=== PATIENT | female | born 1955 | race Caucasian/White ===

== ENCOUNTER 2021-01-12 18:02 | Outpatient (CLI) | payer MEDICARE, SELFPAY ==
--- NOTE | ~2021-01-12 | MM_ITS ---
EXAMINATION: MM screening oralia BI w shahid HISTORY: Screening mammogram TECHNIQUE: Craniocaudal and mediolateral oblique 3-D tomosynthesis images were obtained and synthetic 2-D images were generated. CAD analysis was submitted and interpreted. COMPARISON: 08/14/2019, 12/25/2017, 01/13/2015 bilateral digital screening mammogram examinations BREAST PARENCHYMAL COMPOSITION: There are scattered areas of fibroglandular density. FINDINGS: There is no evidence of suspicious mass, calcification, or architectural distortion to sugg est malignancy in either breast. There has been no suspicious interval change. IMPRESSION: 1. No mammographic evidence of malignancy. 2. Recommend routine screening mammography in one year. BI-RADS Category 1: Negative Reviewed, dictated and finalized at location A. ER
== END 2021-01-12 18:03 | disposition home or self-care (01) ==
LOC: ANHIMG 18:08
PROVIDERS: Visit Provider Nurse Practitioner Obstetrics & Gynecology
DX: Z12.31 Encounter for screening mammogram for malignant neoplasm of breast (principal)
CPT/HCPCS: 77063; 77067

== ENCOUNTER 2023-01-14 00:18 | Day surgery (SDC) | payer MEDICARE, SELFPAY ==
[2023-01-01 10:53] VITALS: BMI 24.5
--- NOTE | 2023-01-11 13:32 | PM.HPGS ---
History of Present Illness History of Present Illness Consent: Risks, benefits, and alternatives have been discussed and questions answered. Patient agrees to proceed with procedure. Chief complaint: hx colon polyps Narrative: Dot Kaiser is a 67 year old female referred for colon cancer screening. She has a history of having had polyps removed. Review of Systems Review of Systems: All systems reviewed & are unremarkable except as noted in HPI and below PMFSH Family History Family History Mother Hypertension Cerebrovascular accident Acute myocardial infarction Other Family history of arthritis Family history of osteoarthritis Family history of osteoporosis Social History Social History Smoking status: Never smoker Alcohol intake: current Alcohol use details: wine with dinner Substance use: never Substance use type: does not use Living arrangements: alone Spiritual care concerns: No Meds Home Medications and Allergies Home Medications Medication Instructions Recorded Confirmed Type Vitamin D3 5,000 units PO EVERY OTHER DAY 01/01/23 01/14/23 History celecoxib 200 mg capsule 200 mg PO DAILY 01/01/23 01/14/23 History dextroamphetamine-amphetamine 20 20 mg PO DAILY 01/01/23 01/14/23 History mg tablet dextroamphetamine-amphetamine ER 30 mg PO DAILY 01/01/23 01/14/23 History 30 mg 24hr capsule,extend release hydrochlorothiazide 25 mg tablet 20 mg PO DAILY 01/01/23 01/14/23 History losartan 100 mg tablet 100 mg PO DAILY 01/01/23 01/14/23 History potassium chloride 10 mEq 10 meq PO DAILY 01/01/23 01/14/23 History tablet,extended release Allergies Allergy/AdvReac Type Severity Reaction Status Date / Time No Known Allergies Allergy Verified 01/14/23 07:46 Exam Const: General: alert Orientation/consciousness: patient oriented x3 Resp: Auscultation: clear to auscultation bilaterally Cardio: Rhythm: regular rhythm GI: GI Palp: Yes Soft to palpation and No Tenderness to palpation present (GI) Neuro: General: patient oriented x3 Assessment and Plan Assessment and plan (1) Colon cancer screening: Code(s): Z12.11 - Encounter for screening for malignant neoplasm of colon Status: Acute Assessment and Plan: Colonoscopy with possible biopsy or polypectomy or cautery or injection of substances.
[2023-01-14 07:47] VITALS: BP 125/70; PULSE 72; RESP 18; TEMP 36.1; O2SAT 100; BMI 24.3
[2023-01-14] MEDS: LACTATED RINGERS 1,000 ML 150 ML IV CONT (07:56)
--- NOTE | 2023-01-14 08:05 | WPDANESEPPF ---
Anes - Initial Pre Proc Eval Procedure: Operation Date: 01/14/23 08:00 Proposed Procedures p Colonoscopy - Qasim Petty MD Date/Time: 01/14/23 08:05 Surgeon: Qasim Petty MD Pre Op Diagnosis: hx colon polyps Patient Data Age: 67 Gender: F Height: 1.55 m Weight: 58.3 kg Last Vital Signs Temp 97.0 F L 01/14/23 07:47 Pulse 72 01/14/23 07:47 Resp 18 01/14/23 07:47 BP 125/70 01/14/23 07:47 Pulse Ox 100 01/14/23 07:47 O2 Del Method Room Air 01/14/23 07:47 Allergies Allergy/AdvReac Type Severity Reaction Status Date / Time No Known Allergies Allergy Verified 01/14/23 07:46 Home Medications Medication Instructions Recorded Confirmed Type Vitamin D3 5,000 units PO EVERY OTHER DAY 01/01/23 01/14/23 History celecoxib 200 mg capsule 200 mg PO DAILY 01/01/23 01/14/23 History dextroamphetamine-amphetamine 20 20 mg PO DAILY 01/01/23 01/14/23 History mg tablet dextroamphetamine-amphetamine ER 30 mg PO DAILY 01/01/23 01/14/23 History 30 mg 24hr capsule,extend release hydrochlorothiazide 25 mg tablet 20 mg PO DAILY 01/01/23 01/14/23 History losartan 100 mg tablet 100 mg PO DAILY 01/01/23 01/14/23 History potassium chloride 10 mEq 10 meq PO DAILY 01/01/23 01/14/23 History tablet,extended release Patient hx anesthesia problems: none Family hx anesthesia problems: none Results Review: All pre-operative results and documents have been reviewed as part of the pre-operative evaluation. [facility] Family History Family History Mother Hypertension Cerebrovascular accident Acute myocardial infarction Other Family history of arthritis Family history of osteoarthritis Family history of osteoporosis Social History Social History Smoking status: Never smoker Alcohol intake: current Alcohol use details: wine with dinner Substance use: never Substance use type: does not use Living arrangements: alone Spiritual care concerns: No Anes - Eval Final PreProcedure Day of Procedure 01/14/23 08:05 Patient weight: normal Heart: regular rate and rhythm Lungs: clear to auscultation Airway: Mallampati scale class II Neurological: alert and oriented Last oral intake: >/= 8 hours ASA classification: II Emergent: no Anesthetic plan: proceed Anesthesia type and monitoring: general GIVS and standard monitoring Results Review: All pre-operative results and documents have been reviewed as part of the pre-operative evaluation. Informed Consent: The patient's anesthetic plan and its attendant risks and benefits were discussed with the patient/family/POA. Questions were solicited and answers provided to the satisfaction of the patient/family/POA.
[2023-01-14] MEDS: SIMETHICONE ORAL SUSPENSION 20 MG/0.3 ML 30 ML BOTTLE 0.6 ML IRRIGATION (08:43)
[2023-01-14 08:55] VITALS: BP 136/71; PULSE 65; RESP 17; O2SAT 100
[2023-01-14 09:05] VITALS: BP 136/71; PULSE 65; RESP 17; O2SAT 100
[2023-01-14 09:10] VITALS: BP 135/73; PULSE 63; RESP 25; O2SAT 100
== END 2023-01-14 09:30 | disposition home or self-care (01) ==
PROVIDERS: PCP Physician Assistant; Visit Provider Internal Medicine Gastroenterology
PROC: 0DJD8ZZ Inspection of Lower Intestinal Tract, Via Natural or Artificial Opening Endoscopic (ICD-10-PCS; CPT 45378; principal; 2023-01-14 08:00)
DX: Z12.11 Encounter for screening for malignant neoplasm of colon (principal); K57.30 Diverticulosis of large intestine without perforation or abscess without bleeding; D12.4 Benign neoplasm of descending colon
CPT/HCPCS: 45380; 88305; J2704; J7120

== ENCOUNTER 2023-05-14 14:51 | Outpatient (CLI) | payer MEDICARE, SELFPAY ==
--- NOTE | ~2023-05-14 | MM_ITS ---
EXAMINATION: MM screening oralia BI w shahid HISTORY: Screening mammogram TECHNIQUE: Craniocaudal and mediolateral oblique 3-D tomosynthesis images were obtained and synthetic 2-D images were generated. CAD analysis was submitted and interpreted. COMPARISON: January 12, 2021, August 14, 2019, December 25, 2017 bilateral screening mammogram exa minations BREAST PARENCHYMAL COMPOSITION: There are scattered areas of fibroglandular density. FINDINGS: There is no evidence of suspicious mass, calcification, or architectural distortion to sugg est malignancy in either breast. There has been no suspicious interval change. IMPRESSION: 1. No mammographic evidence of malignancy. 2. Recommend routine screening mammography in one year. BI-RADS Category 1: Negative Reviewed, dictated and finalized at location A.
== END 2023-05-14 14:52 | disposition home or self-care (01) ==
PROVIDERS: PCP Physician Assistant; Visit Provider Physician Assistant
DX: Z12.31 Encounter for screening mammogram for malignant neoplasm of breast (principal)
CPT/HCPCS: 77063; 77067

== ENCOUNTER 2025-01-01 14:13 | Outpatient (CLI) | payer MEDICARE, SELFPAY ==
--- NOTE | ~2025-01-01 | MM_ITS ---
EXAMINATION: MM screening oralia BI w shahid HISTORY: Screening TECHNIQUE: Craniocaudal and mediolateral oblique 3-D tomosynthesis images were obtained and synthetic 2-D images were generated. CAD analysis was submitted and interpreted. COMPARISON: Comparison to multiple prior studies sequentially, with oldest reviewed study dated 01/13. BREAST PARENCHYMAL COMPOSITION: Not dense: There are scattered areas of fibroglandular density. FINDINGS: There is no evidence of suspicious mass, calcification, or architectural distortion to sugg est malignancy in either breast. There has been no suspicious interval change. IMPRESSION: 1. No mammographic evidence of malignancy. 2. Recommend routine screening mammography in one year. BI-RADS Category 1: Negative Reviewed, dictated and finalized at location A. MECHANIC
--- OUTSIDE RECORDS SUMMARY | 2025-01-01 14:19 | XMS_ITS | Clinical Summary ---
Author Organization [facility] Address [address] [place] [address]. [place] [address] [place] [address] Care Team Providers Care Rn Sane Name Role Phone Kajal Franklin Shankar [facility] Primary Care Provider + Allergies Active Allergy Reactions Criticality Noted Date Comments Vitamin A Rash Medium 03/27/2017 Medications vitamin D3, cholecalciferol , 5000 UNITS capsule Take 1 capsule (5,000 Units total) by mouth every other day. Active clobetasol 0.05 % external solution clobetasol 0.05 % scalp solution Active hydroCHLOROthia zide 25 MG tablet Take 1 tablet (25 mg total) by mouth daily. 1 Active losartan 100 MG tablet Take 1 tablet (100 mg total) by mouth daily. 1 Active amphetamine-dex troamphetamine XR (ADDERALL XR) 30 MG 24 hr capsule Take 1 capsule (30 mg total) by mouth every morning. Active clobetasol (TEMOVATE) 0.05 % ointment APPLY TWICE DAILY TO AFFECTED AREAS ON FEET AND SCALP 2 Active pimecrolimus (ELIDEL) 1 % cream APPLY EXTERNALLY TO FACE EVERY MORNING 2 Active celecoxib (CELEBREX) 200 MG capsule Take 1 capsule (200 mg total) by mouth 2 (two) times daily as needed for Pain. 2 Active atorvastatin (LIPITOR) 20 MG tablet Take 1 tablet (20 mg total) by mouth nightly at bedtime. Active ketoconazole (NIZORAL) 2 % shampoo USE TO WASH HAIR DAILY FOR 6 WEEKS 3 Active ofloxacin (OCUFLOX) 0.3 % ophthalmic solution 3 Active valACYclovir (VALTREX) 1 g tablet TAKE ONE TABLET BY MOUTH THREE TIMES DAILY FOR 7 DAYS NEEDED FOR OUTBREAKS 4 Active omeprazole (PRILOSEC) 20 MG capsule Take 1 capsule (20 mg total) by mouth daily as needed (indigestion). Active potassium chloride CR (K-TAB) 20 MEQ tablet Take 1 tablet (20 mEq total) by mouth daily. 4 Active amphetamine-dex troamphetamine (ADDERALL) 20 MG tablet 4 Active Active Problems Problem Noted Date Diagnosed Date History of colon polyps 03/03/2024 History of nephrolithiasis 03/03/2024 Osteopenia 03/03/2024 Osteoarthritis 03/03/2024 Seborrheic dermatitis 03/03/2024 Attention deficit hyperactiv ity disorder (ADHD), unspecified ADHD type 03/03/2024 Vitamin D deficiency 03/03/2024 Hypercholesterolemia 08/04/2021 Systolic murmur 08/04/2021 Non-seasonal allergic rhinitis 06/01/2010 Overview (03/03/2024): Last Assessment & Plan: In addition to her skin complaints, she feels there is some sort of pressure in her eyes like something is trying to come out. Sometimes her eyes will discharge a watery mucus. In the morning when she first wakes up she has to use saline to get her eyes open. She also has a pressure-like sensation in her nose and feels like the mucus in her eyes is draining into her nose. The mucus in her nose is very tenacious. When she grabs it with tweezers, it recoils back into her nose. She saw Dr. Robertson a number of years ago who recommended some nasal steroid sprays. She took these for awhile but it did not help much. She now takes Zyrtec daily. Exam is fairly unremarkable. We will review records when available and make some additional suggestions. Essential hypertension 01/02/2000 Overview (03/03/2024): Last Assessment & Plan: She has had high blood pressure for at least 10 years. It seems to be well controlled on current therapy. She would like some labs checked which we ordered. I do not think her skin complaints are related to hypertension or its treatment. 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/2021 03/03/2024 Immunizations Name Administration Dates Next Due PFIZER COVID-19 BIVALENT (12 +) mRNA, LNP-S, PF, 30 MCG/0.3 ML DOSE 12/05/2022 Pneumococcal (Prevnar 20) 12/05/2022 Family History Medical History Relation Comments Arthritis Father osteoarthritis; psoriatic Cancer Father skin (basal, squ amous) Heart Disease Father 9nth decade; car diomyopathy/a fib Hyperlipidemia Father elevated LDL Hypertension Father mild, 9th decade Stroke Father 10th decade/a fi b Arthritis Mother osteoarthritis Heart Disease Mother early 6th decade ; CAD; tobacco use Hyperlipidemia Mother ?; tobacco use Hypertension Mother cardiovascular Stroke Mother early 6th decade /tobacco use Vision loss Mother cataracts; macul ar degeneration Relation Status Comments Father Mother Social History Tobacco Use Types Packs/Day Years Used Date Smoking Tobacco: Never Smokeless Tobacco: Never Tobacco Cessation:Counseling Given: No Alcohol Use Standard Drinks/Week Comments Yes 23.3 (1 standard drink = 0.6 oz pure alcohol) PHQ-2 Answer Date Recorded Patient Health Questionnaire-2 Score 0 02/26/2024 Comments No Sex and Gender Information Value Date Recorded Sex Assigned at Not on file Legal Sex Female 12:48 PM CDT Gender Identity Not on file Sexual Orientation Not on file Last Filed Vital Signs Vital Sign Reading Time Taken Comments Blood Pressure 135/88 02/26/2024 8:49 AM CDT Pulse 68 02/26/2024 8:49 AM CDT Temperature 36.4 ??C (97.6 ??F) 02/26/2024 8:49 AM CD T Respiratory Rate 16 02/26/2024 8:49 AM CDT Oxygen Saturation 99% 02/26/2024 8:49 AM CDT Inhaled Oxygen Concentration - - Weight 57.7 kg (127 lb 3.2 oz) 02/26/2024 8:49 A M CDT Height 157.5 cm (5' 2 ) 02/26/2024 8:49 AM CDT Body Mass Index 23.27 02/26/2024 8:49 AM CDT Plan of Treatment Health Maintenance Due Date Last Done Comments DTaP, Tdap and Td Vaccines (1 - Tdap) 1973 Zoster Vaccines (1 of 2) 1973 RSV Immunization or 60+ Years (1 - Risk 60-74 years 1-dose series) 2014 Annual Medicare Wellness Visit 2019 Dexa Scan (General) 2019 COVID-19 Vaccine ( season) 2024 12/05/2022, 11/08/2021, 01/06/2021, Additional history exists Influenza Adult (#1) 2024 PHQ-2 (Physician [place]) 12/02/2024 02/26/2024 PHQ-2 (Physician [place]) 02/25/2025 02/26/2024 Mammogram Screening 05/14/2025 05/14/2023 Colorectal Cancer Screening Colonoscopy (10 Years) 01/02/2033 Postponed from 1954 (Future Appointment) Hepatitis C Completed 12/05/2022 Pneumococcal Vaccine: 65+ Years Completed 12/05/2022 Meningococcal B Vaccine Aged Out No l onger eligible based on patient's age to complete this topic Meningococcal Vaccine Aged Out No sean em eligible based on patient's age to complete this topic RSV Immunizations Under 20 Months Aged Out No longer eligible based on patient's age to complete this topic Procedures Procedure Name Priority Date/Time Associated Diagnosis Comments MAMMOGRAM GENERIC (SCAN ORDER) 05/14/2023 HEPATITIS C ANTIBODY Routine 12/05/2022 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 Encounter for hepatitis C screening test for low risk patient from Last 3 Months or Most Recently Relevant to Health Maintenance Results * MAMMOGRAM GENERIC (05/14/2023) Anatomical Region Laterality Modality Other 05/14/2023 [facility] Scanned SCANNING Final Resu lt * HEPATITIS C AB ([facility] ONLY) (12/05/2022 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) HEPATITIS C AB NON-REACTI VE NON-REACTI VE 12/05/2022 8:20 PM PICKING TABLE WORKER [facility] 12/05/2022 12:1 1 PM PICKING TABLE WORKER [facility] Final Result [facility] [address] [place] [address], [place] [phone] from Last 3 Months or Most Recently Relevant to Health Maintenance Insurance [facility]ARE [facility] Care Teams Rn Sane Relationship Specialty Start Date End Date Kajal Franklin, MEDICINAL CHEMIST-BC [address], [address] [place] [address] PCP - General Nurse Practitioner Family 01/16/24
--- OUTSIDE RECORDS SUMMARY | 2025-01-01 14:19 | XMS_ITS | Continuity of Care Document ---
Author Organization [facility] Address [address] [address] Phone Care Team Providers Care Horse Race Timer Name Role Phone Mauricio Shaw Unavailable Unavailable Allergies, Adverse Reactions, Alerts Substance Reaction Status Criticality No Known Allergies Active No Inform ation Medications Medication Instructions Dosage Effective Dates (start - stop) Status Comments losartan 100 mg-hydrochlorothiazide 12.5 mg tablet - Active Adderall 30 mg tablet - Active Adderall 10 mg tablet - Active potassium chloride ER 8 mEq capsule,extended release - Active Vitamin D2 1,250 mcg (50,000 unit) capsule - Active diclofenac potassium 50 mg tablet - Active Soma 250 mg tablet - Active hydrocodone 5 mg-acetaminophen 325 mg tablet - Active Procedures Procedure Date Office/outpatient visit,[facility] 2020 Advance Directives Directive Yes / No Effective Date File Name No Information Encounters Encounter Description Practice Location Reason(s) For Visit Diagnoses Date Provider Providers Copied on Encounter [facility], [address] [place] [address], [id number], tel:[phone] [facility] No Information Colin banegas. [address] [place] [address], [place], [place], [id number] , [place]. tel:[phone] Office/outpat ient visit,[facility], [address] [place] [address], [id number], tel:[phone] [facility] right hip (chief complaint) Pain in right hipUnilateral primary osteoarthritis , left hipIdiopathic aseptic necrosis of left femur Barclaytracy Morejon. [address], [address], [place], [place], [id number] , . tel: [phone] Referring Provider: Jean-Pierre Delacruz, [address], [place], [address] . tel:[phone] Family History Family Member Type Diagnosis Age At Onset Mother Problem (finding) Hypertension Mother Problem (finding) Other Father Problem (finding) Stroke Mother Problem (finding) Osteoarthritis Mother Problem (finding) Stroke Mother Problem (finding) Heart Disease Father Problem (finding) Cancer, unknown Mother Problem (finding) Cancer, unknown Father Problem (finding) Hypertension Father Problem (finding) Osteoarthritis Payers Payer name Insurance type Covered alliance party ID Authoriza tion(s) [place] Part B [id number] A Insurance Agency [id number] Social History Type Description Quantity Date Captured Comments Alcohol Use Details Unknown Caffeine Use Details Unknown Tobacco Use Status No Information Smoking Status No Information Sex Female Chief Complaint And Reason For Visit No Information Reason For Referral Reason For Referral No Information Plan Of Treatment Date Type Action Status Referral Ordered: X-ray Exam Hip Unilat With Pelvis When Perf 2-3 View RT hip ordered History Of Present Illness Encounter Date Complaint History Of Prese nt Illness right hip Julieta is a 66 year old, 5'2 tall, 125 pound, right hand dominant female who presents to the office today for evaluation of her chronic left hip pain. States that pain started last year with increases to yard work. Pain decreased with reduction to yard work. She sustained a fall event in March and a subsequent fall in April with resulting increase in pain. She presented to Dr. Reinier Ortega where she was diagnosed with osteoarthritis of the left hip. She received a cortisone injection into the left hip, and a prescription for Vicodin. Unable to indicate efficacy of injection. Did not wish to continue care as the physician did not perform anterior hip replacements. Patient presented to Dr. Lawrence one week after injection and was informed that surgical intervention could not be performed until patient was more than 3 months past cortisone injection. States she states another fall event in late May, and was told to use a cane with ambulation and a change to her NSAIDs was completed. States she was very frustrated with no increase to pain medications, and physician refusal to perform surgery until patient was three months past injection. 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 She presented to the office of Dr. Tavares last week where she was diagnosed with AVN and scheduled for surgical intervention with anterior hip arthroplasty on 08/18/2021. She is to present to the hospital for presurgical testing this week. She would like to discuss surgical intervention, requesting anterior total hip arthroplasty before the date of 08/18/2021, opinion of use of robotics with surgery, and medications management. She is currently experiencing a catching sensation with range of motion, crepitation, difficulty falling asleep, giving way, grinding, numbness, popping, spasms. Pain is rated at a 10 out of 10 with an aching, sharp, stabbing, throbbing constant nature. Pain is worsened with bending, range in motion, sitting, standing, walking. Pain is managed with the use of acetaminophen, Soma, hydrocodone, and rest. 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 She is ambulating with the use of a cane at today's visit. Functional Status Date Functional Assessmen t No Information Instructions Date Instruction Additional Infor mation No Information Assessments Type Assessment Date No Information Patient Care Teams Name Effective Dates (start - stop) Status Members No Information
--- OUTSIDE RECORDS SUMMARY | 2025-01-01 14:19 | XMS_ITS | Continuity of Care Document ---
Author Organization [facility] Address [address] [facility] [address] [place] [address] Phone Care Team Providers Care Floor Sanding Machine Operator Name Role Phone Christiano Kasper MD, FACS Unavailable Unavailab le Advance Directives Directive Yes / No Effective Date File Name No Information Encounters Encounter Description Practice Location Reason(s) For Visit Diagnoses Date Provider Providers Copied on Encounter [facility], [address], [place], [place], [id number], [place] tel:[phone] [facility] No Information Mar-0 9-200 0 Majo Alvarado. [address], [address], [place], [place], [id number], [place]. tel:[phone] Family History Family Member Type Diagnosis Age At Onset No Information Payers Payer name Insurance type Covered libertarian ID Authoriza tion(s) No Information Social History Type Description Quantity Date Captured Comments Sex Female Smoking Status No Information Chief Complaint And Reason For Visit No Information Reason For Referral Reason For Referral No Information History Of Present Illness Encounter Date Complaint History Of Prese nt Illness No Information Functional Status Date Functional Assessmen t No Information Instructions Date Instruction Additional Infor mation No Information Assessments Type Assessment Date No Information Patient Care Teams Name Effective Dates (start - stop) Status Members No Information
--- OUTSIDE RECORDS SUMMARY | 2025-01-01 14:19 | XMS_ITS | Referral Summary ---
Author Organization [facility] Physician Office Building [address] Address [address] [place] [address] Care Team Providers Care Power Generation Technician Name Role Phone No, Physician Primary Care Provider [phone] Allergies Active Allergy Reactions Criticality Noted Date Comments Vitamin A Rash Medium 03/27/2017 Medications cholecalciferol (VITAMIN D-3) 5,000 unit capsule Take by mouth daily Active dextroamphetami ne-amphetamine XR (ADDERALL XR) 30 mg 24 hr capsule Take 1 capsule by mouth every morning 0 9 Active dextroamphetami ne-amphetamine (ADDERALL) 10 mg tablet Take 1 tablet by mouth daily At noon. 0 9 Active losartan (COZAAR) 100 mg tablet TK 1 T PO QD 2 9 Active multivitamin tablet Take 1 tablet by mouth daily Active cetirizine (ZyrTEC) 10 mg tablet Take 10 mg by mouth daily Active hydroCHLOROthia zide (HYDRODIURIL) 25 mg tablet Take 25 mg by mouth daily Active potassium chloride ER (potassium chloride ER) 10 mEq CR tablet Take 10 mEq by mouth daily Active spinosad 0.9 % suspension Apply 1 application topically once Has applied it once a week for month of January 2021. 1 Active Active Problems Problem Noted Date Diagnosed Date Itchy skin 06/01/2016 Overview (06/21/2020): Scalp, face, eyes, wrists, ankles. 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 She brought in multiple photos which are challenging to interpret. She uses a 30 X magnifying camera with ring LED illumination that she applies to symptomatic areas of her skin and scalp to take pictures. I reviewed multiple photographs which appear to show hair roots and squamous cell debris but nothing else that I can identify as a definite infection or inflammatory dermatitis. She says when she first gets up in the morning her skin is like a ? snow storm.? She then uses a nit comb to clean things up. Her eyes and nose which are constantly irritated and dischafging material that she feels might be due to a local infestation or infection of some kind. Photos of the eye and nose material show amorphous, yellowish material that is difficult to interpret for lack of context. It might be dried mucus. Since her last visit with me 6 months ago, she obtained on her own and applied a couple of insecticides including malathion followed by spinosad, the later seemed to help a little. She denies systemic symptoms of any kind. She had her labs done and says they were all normal except for cholesterol abnormalities. They did not come through the interface but we are trying to track them down. Inspection of the scalp, face and forearms was negative for any definite pathology or evidence of ectoparasite infestation. At this point, I do not think I have anything else to offer her. I did recommend that she follow-up with a special effects specialist of her choice. A skin snip might be helpful in diagnosing or excluding scabies. I will review labs that when they become available, and if follow-up testing is needed, I will let her know. I also recommended that she find a PCP who can monitor her blood pressure and cholesterol, and that she consider lowering the dose of blood pressure medicine since her current blood pressure is in a low normal range. She can follow-up here as needed. Assessment & Plan (07/02/2020 3:12 PM CDT): For the past four years or so, she has had irritated or itchy skin, mostly in the scalp and face, but also on both wrists and both ankles. She feels like something is on her skin, possibly crawling on it. She also has pressure in her eyes like something is trying to come out, and thick mucus in her nose which she thinks might be draining from her eyes. She used a special camera that she attaches to her computer to take pictures and says that it shows small parasites of some kind. She meant to bring the photos with her, but forgot. She has been to numerous dermatologists who have not found any underlying condition. She has tried numerous remedies which she has mostly prescribed to herself including steroid creams, moisturizing creams, metronidazole gel, cyclosporin topical, vitamin-D analog topical, anti fungals, and even remedies for lice and scabies. A special effects specialist in [place] gave her a one month course of Diflucan. None of these have helped or reduced her symptoms. Exam shows no definite abnormality on the scalp, face, arms and wrists, hands, lower legs. She does have a chronic appearing dry, inflamed hyperkeratotic and confluent dermatitis of the soles of both feet with areas of keratolysis along the margin of the rash where it abuts normal appearing skin. She apparently has had a biopsy of the right nondenominational area, but those results are not available. 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 She does have a psychiatrist for adult ADD, but is not on any psychotropic medications. She does take dextroamphetamine. She will bring in records for review. We will check some baseline labs which she has not had for awhile. We will see her back in two weeks. Rash 06/01/2016 Overview (06/21/2020): Plantar surfaces of both feet. Assessment & Plan (07/02/2020 3:13 PM CDT): As noted elsewhere, I do not see any definite rash except on the plantar surfaces of both feet. This looks like a dry eczematous or less likely psoriatic type rash. She has tried several remedies on this rash including anti fungals, topical steroids, and emollients. She admits to not using some of these remedies consistently. We will review records when they become available. Consider a trial of other medications if indicated. Non-seasonal allergic rhinitis 06/01/2010 Assessment & Plan (07/02/2020 3:13 PM CDT): In addition to her skin complaints, she [...] make some additional suggestions. Essential hypertension 01/02/2000 Assessment & Plan (06/21/2020 1:18 PM CDT): She has had high blood pressure for at least 10 years. It seems to be well controlled on current therapy. She would like some labs checked which we ordered. I do not think her skin complaints are related to hypertension or its treatment. Immunizations Name Administration Dates Next Due Influenza, Unspecified 07/31/2021(Deferr ed: Patient Refused),12/02/2019(Deferred: Patient Refused) Pfizer SARS-CoV-2 Monovalent Vaccination (12+ Yrs) PURPLE 01/06/2021,01/06/2021,12/17/2020,2020 Social History Tobacco Use Types Packs/Day Years Used Date Smoking Tobacco: Never Smokeless Tobacco: Never Tobacco Cessation:Counseling Given: Yes Alcohol Use Standard Drinks/Week Comments Yes 0 (1 standard drink = 0.6 oz pur e alcohol) PHQ-2 Answer Date Recorded PHQ-2 Total Score (If total score is 3 or more points, staff should administer the PHQ-9) 6 06/21/2020 Comments No Sex and Gender Information Value Date Recorded Sex Assigned at Not on file Legal Sex 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 Gender Identity Not on file Sexual Orientation Not on file Occupation Industry Job Start Date Job End Date [employer] Not on file Not on file Not o n file Last Filed Vital Signs Vital Sign Reading Time Taken Comments Blood Pressure 90/52 02/01/2021 2:04 PM VARNISH MELTER HELPER Pulse 83 02/01/2021 2:04 PM VARNISH MELTER HELPER Temperature 36.2 ??C (97.1 ??F) 02/01/2021 2:04 PM CS T Respiratory Rate 12 02/01/2021 2:04 PM VARNISH MELTER HELPER Oxygen Saturation 97% 02/01/2021 2:04 PM VARNISH MELTER HELPER Inhaled Oxygen Concentration - - Weight 58.1 kg (128 lb) 02/01/2021 2:04 PM VARNISH MELTER HELPER Height 160 cm (5' 3 ) 06/21/2020 12:04 PM CDT Body Mass Index 22.67 06/21/2020 12:04 PM CDT Plan of Treatment Not on file Procedures Procedure Name Priority Date/Time Associated Diagnosis Comments MAMMOGRAPHY Routine 12/02/2016 COLONOSCOPY Routine 12/02/2016 DEXA SCAN Routine 12/02/2009 from Last 3 Months or Most Recently Relevant to Health Maintenance Results * COLONOSCOPY (12/02/2016) Colonoscopy Abnormal Comment:Polyps [facility] Provider HEALTH MAINTENANCE Final Result * MAMMOGRAPHY (12/02/2016) Mammogram Normal [facility] Provider HEALTH MAINTENANCE Final Result * DEXA SCAN (12/02/2009) DEXA Scan Abnormal Comment:Osteopenia Historical Provider HEALTH MAINTENANCE Final Result from Last 3 Months or Most Recently Relevant to Health Maintenance Insurance COMMERCIAL GENERIC MEDICARE MEDICARE [facility] Care Teams Power Generation Technician Relationship Specialty Start Date End Date No, Physician PCP - General 08/18/19
--- OUTSIDE RECORDS SUMMARY | 2025-01-01 14:19 | XMS_ITS | CONTINUITY OF CARE DOCUMENT ---
Author Name edmar hyatt Address Unknown Organization [facility] Address [address] [facility] [address] [place] [address] Phone [phone] Care Team Providers Care Order Builder Loader Name Role Phone Yris SINGLETON, Galo Unavailable AISHWARYA MILLER MD Unavailable [phone] PROBLEMS Condition Status Date Provider Notes Screening active Charla Rios Hypercholesterolemia active Charla Rios Hypertension active Charla Rios Preoperative cardiovascular evaluation active Charla Rios Systolic murmur, mild active Charla Rios ENCOUNTERS Date Type Provider Location Encounter Diag nosis 11/17 - 11/17 In-person encounter Office Visit Galo Arndt MD [facility] 08/04 - 08/08 In-person encounter Office Visit Galo Arndt MD [facility] ScreeningHypercholesterolemiaHypertensio nPreoperati ve cardiovascular evaluationSystolic murmur, mild VITAL SIGNS Date Observation Value Provider Body Mass Index (Ratio) 23.96 kg/m2 Cesar Rios blood pressure, cuff size regular Ke rri Osmany blood pressure, diastolic 70 mm[Hg] Ke rri Osmany blood pressure, systolic 112 mm[Hg] Citlaly Ceron oxygen saturation, oximetry 98 % Mecca Ceron respiratory rate E&M 14 /min Mecca tomasbassam pulse rate 71 /min Mecca Shah er weight E&M 131 [lb_av] Mecca Shah er height E&M 62 [in_i] Mecca Shah lder blood pressure, diastolic 82 mm[Hg] Li nkLogic blood pressure, systolic 128 mm[Hg] Isa kLogic blood pressure, cuff size regular Ke [facility]at [facility] blood pressure, diastolic 82 mm[Hg] Ke rrbertha Rod blood pressure, systolic 128 mm[Hg] Citlaly Ceron oxygen saturation, oximetry 97 % Mecca Mirzamarquita respiratory rate E&M 16 /min Mecca Baker dahliainocentemarquita pulse rate 74 /min Mecca Shah er height E&M 62 [in_i] Mecca Zhangmaribel [facility] HISTORY OF MEDICATION USE Medication Status Instructions Dates Provider Indications Com ziggy atorvastatin 20 mg tablet active TAKE 1 TABLET BY MOUTH EVERY DAY 08/11 Marvin Kelly Lipitor 20 mg tablet completed Take 1 tabl et by mouth once a day 08/04 - 08/11 Charla Rios diclofenac sodium 75 mg tablet,delayed release (DR/EC) active TAKE 1 TABLET BY MOUTH TWICE DAILY WITH FOOD. TAKE INSTEAD OF THE NAPROXEN OR CELEBREX. DO NOT TAKE ANY OTHER NSAIDS. Mecca Ceron losartan 100 mg tablet active TAKE 1 TABLET BY MOUTH EVERY DAY Mecca Ceron hydrocodone-acetamino phen 5-325 mg tablet active TAKE 1 TABLET BY MOUTH EVERY 4 HOURS NEEDED FOR PAIN Mecca Ceron dextroamphetamine-amp hetamine 10 mg tablet active TAKE 1/2 TO 1 TABLET BY MOUTH EVERY DAY AT NOON DIRECTED Mecca Ceron vitamin D3-folic acid unspecified unspecified active by mouth once a day Mecca Rodbassam dextroamphetamine-amp hetamine 30 mg capsule,extended release 24hr active by mouth once a day Mecca Ceron hydrochlorothiazide 25 mg tablet active by mouth once a day Mecca Ceron omeprazole 20 mg capsule,delayed release(DR/EC) active by mouth twice a day Mecca Zhangrossbassam potassium chloride 10 mEq tablet extended release active by mouth once a day Mecca Mirzaolayinkabassam Zyrtec 10 mg tablet active by mouth onc e a day Mecca Ceron SOCIAL HISTORY Date Observation Value Provider social history E&M S moking History: P nkechi has never smoked. Charla Rios social history reviewed E&M revi ewed - no changes required Charla Rios smoking status Never smoker Mecca adler social history reviewed E&M revi ewed - no changes required Charla Rios smoking status Never smoker Mecca Pearsondillon adler INSURANCE PROVIDERS Payer name Policy type / Coverage type [place] [employer] ID [employer] Commercial insurance compan y [id number] [place] MED[place] Medicare [id number] ADVANCE DIRECTIVES Name Date DISCUSSED - NO DECISION MADE TREATMENT PLAN Date Name Performer [id number],C, n o clinically significant by echo Charla Rios [id number],C, N ot taking her statin but she did pick it up S he understands the benefits E ncouraged her to try dietary/lifestyle modification for now and recheck labs in 2 months. Charla iRos [id number],B, B P today: 112/70 P rior BP: 128/82 (08/04/2021) Her updated medication list for this problem includes: Losartan 100 Mg Tablet (Losartan) ..... Take 1 tablet by mouth every day Hydrochlorothiazide 25 Mg Tablet (Hydrochlorothiazide) ..... 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 Normal left ventricular systolic function. Normal left ventricular size. Normal left ventricular wall thickness. There is E to A w ave reversal consistent with impaired LV relaxation. E/E': 7.2. Left ventricular ejection fraction is measured at 65 %. 2 . There is non-specific thickening of the mitral valve leaflets. Mild mitral valve regurgitation. 3 . Normal aortic root size. Mild aortic wall calcification. Stress nuclear 08/09/21: Normal myocardial perfusion imaging with no evidence of ischemia or scar. Charla Gabriel [id number],C, n ot on any medications for this. start lipitor Orders: S tress Regadenoson ([id number]) C omplete Echo ([id number]) Her updated medication list for this problem includes: Lipitor 20 Mg Tablet (Atorvastatin) ..... Take 1 tablet by mouth once a day Charla Gabriel [id number],B, B P today: 128/82 Her updated medication list for this problem includes: Losartan 100 Mg Tablet (Losartan) ..... Take 1 tablet by mouth every day Hydrochlorothiazide 25 Mg Tablet (Hydrochlorothiazide) ..... By mouth once a day Charla Gabriel [id number],N, i f no clinically significant ok for surgery O rders: C omplete Echo (CPT-[id number]) Charla Gabriel [id number],C, l eft hip total replacement Orders: S tress Regadenoson ([id number]) C omplete Echo ([id number]) Charla Gabriel Electrophysiology: n o clinically significant by echo [facility] [place] [facility] Electrophysiology: N ot taking her statin but she did pick it up S he understands the benefits E ncouraged her to try dietary/lifestyle modification for now and recheck labs in 2 months. Charla Gabriel Electrophysiology: B P today: 112/70 P rior BP: 128/82 (08/04/2021) Her updated medication list for this problem includes: Losartan 100 Mg Tablet (Losartan) ..... Take 1 tablet by mouth every day Hydrochlorothiazide 25 Mg Tablet (Hydrochlorothiazide) ..... 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 Normal left ventricular systolic function. Normal left ventricular size. Normal left ventricular wall thickness. There is E to A w ave reversal consistent with impaired LV relaxation. E/E': 7.2. Left ventricular ejection fraction is measured at 65 %. 2 . There is non-specific thickening of the mitral valve leaflets. Mild mitral valve regurgitation. 3 . Normal aortic root size. Mild aortic wall calcification. Stress nuclear 08/09/21: Normal myocardial perfusion imaging with no evidence of ischemia or scar. Matinancy Gabriel Electrophysiology: n ot on any medications for this. start lipitor Orders: S tress Regadenoson ([id number]) C omplete Echo ([id number]) Her updated medication list for this problem includes: Lipitor 20 Mg Tablet (Atorvastatin) ..... Take 1 tablet by mouth once a day Charla Rios Electrophysiology: B P today: 128/82 Her updated medication list for this problem includes: Losartan 100 Mg Tablet (Losartan) ..... Take 1 tablet by mouth every day Hydrochlorothiazide 25 Mg Tablet (Hydrochlorothiazide) ..... By mouth once a day Charla Rios Electrophysiology: i f no clinically significant ok for surgery O rders: C omplete Echo ([id number]) Matinancy Gabriel Electrophysiology: l eft hip total replacement Orders: S tress Regadenoson ([id number]) C omplete Echo ([id number]) Charla Gabriel Date Name Cortisol CBC (H/H, RBC, INDIC ES, WBC, PLT) TSH, free T4, total T3 LIPID PANEL COMPREHENSIVE METABO LIC PANEL, W/EGFR Complete Echo Stress Regadenoson HISTORY OF PROCEDURES Procedure Date Procedure Name Provider Procedure Notes S tatus EKG Galo Arndt MD comp leted EKSamuel Arndt MD comp leted
--- OUTSIDE RECORDS SUMMARY | 2025-01-01 14:19 | XMS_ITS | Patient Health Summary ---
Author Organization [facility] [employer] Address [address] [place] [address] Care Team Providers Care Recycling Operations Manager Name Role Phone Anusha ALEMAN MD, Carlos Unavailable [phone] Note from [facility],non-owned Affiliates and Associated Physician Practices is amultiple site organization consisting of ambulatory clinics and hospital sitesin [place], [place], [place] and [place]. This disclosure is being madepursuant to the Care Everywhere program and may not contain all information available regarding this patient. Last updated 18.[facility] [employer] Allergies * Vitamin A(Rash) -Medium Criticality Medications * Be aware that medications may not be up to date on this document. Alwaysverify current medications with the patient. * Emollient (DHEA) 1 %(Started 03/27/2017) by Apply externally route. * olmesartan-hydroCHLOROthiazide (BENICAR HCT) 40-25 MG tablet(Started 03/27/2017) Take 1 tablet by mouth DAILY. * Loratadine 10 MG(Started 03/27/2017) Take by mouth. * spironolactone (ALDACTONE) 100 MG tablet(Started 03/27/2017) Take 100 mg by mouth DAILY. Social History Tobacco Use Types Packs/Day Years Used Date Smoking Tobacco: Never Alcohol Use Standard Drinks/Week Comments Yes 0 (1 standard drink = 0.6 oz pur e alcohol) Sex and Gender Information Value Date Recorded Sex Assigned at Not on file Gender Identity Not on file Sexual Orientation Not on file Procedures * DERMATOPATHOLOGY(Performed 10/30/2022) * XR HIP LEFT 2VW OR MORE(Performed 07/24/2021) Performed for Left hip pain Results * DERMATOPATHOLOGY (10/30/2022 12:00 AM FIELD APPLICATION ENGINEER) Case Report Dermatopathology Report ? Case: [id number] ? Authorizing Provider: ??Arabella Cox, ?? Collected: ? 10/30/2022 12:00 AM ? Ordering Location: ? [facility] Derm[facility] ?Received: ?10/31/2022 12:25 PM ? Pathologist: ? Marge Alarcon MD ? Specimen: ?Skin, left scalp ? 2 4:27 PM [facility] DERMATOPATHOLOGY [facility]ORATORY Final Diagnosis Specimen A. 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 The specimen consists of a punch biopsy measuring 3x3x4 mm. Jar 0. 12/02/202 2 4:27 PM [facility] DERMATOPATHOLOGY [facility]ORATORY Microscopic Description Specimen A. SKIN, left scalp: There is focal parakeratosis and mild spongiosis of the epidermis. The epidermis is focally necrotic and covered with a scale-crust. In the dermis there is a mainly superficial perivascular lymphoid infiltrate. Periodic acid-Griselda (PAS) stain fails to highlight fungal elements or significant basement membrane thickening in the available sections. IL-36 immunostain does not show significant staining in the epidermis. COMMENT: These histological findings can be seen in an eczematous dermatitis with healing skin changes. The characteristic histologic features of connective tissue disease are not seen in this specimen. This case was also reviewed by Dr. Jayme Coleman, who agrees. 2 4:27 PM [facility] DERMATOPATHOLOGY [facility]ORAT[facility] Disclaimer An external and internal positive and negative controls are appropriate for the histochemical, immunohistochemical and immunofluorescence stain(s) in this case (if any), except where stated explicitly. The performance characteristics of the stain(s) cited in this report were developed and its performance characteristic determined by the Dermatopathology Laboratory at [facility], directed by Dr. Huyen Coleman. These tests need not be, and therefore are not, approved by the [place] Food and Drug Administration. The tests are used for clinical purposes. Billing Codes Specimen Charges Stain Charges 04824 1 29988 67730 1 1 2 4:27 PM [facility] DERMATOPATHOLOGY LABORATORY Embedded Images 2 4:27 PM [facility] DERMATOPATHOLOGY LABORATORY Pathology/Cytolog y TISSUE SPECIMEN FROM SKIN / Unknown 10/30/2022 10/31/2022 12:25 PM FIELD APPLICATION ENGINEER Arabella Cox DO LAB - PATHOLOGY/C YTOLOGY ORDERABLES DERMATOPATHOLOGY LABORATORY [facility] - Department of Dermatology [address], [address] [phone] * XR HIP LEFT 2VW OR MORE (07/24/2021 11:25 AM CDT) Anatomical Region Laterality Modality Pelvis, Lower Extremity Computed Radiography Narrative 07/24/2021 11:26 AM CDT Dot Hilton, RT(R) ? 08/01/2021 12:02 PM See progress notes for results Carlos Tavares IV, MD DIAGNOSTIC IMAGING O RDERABLES Care Teams Recycling Operations Manager Relationship Specialty [place] [id number] [facility] [address] [place] [id number] Orthopedic Surgery 07/24/21
--- OUTSIDE RECORDS SUMMARY | 2025-01-01 14:19 | XMS_ITS | Clinical Summary ---
Author Organization [facility] Care Team Providers Care Solar/Renewable Energy Sales Name Role Phone Unavailable Primary Care Provider Unavailabl e Social History Tobacco Use Types Packs/Day Years Used Date Smoking Tobacco: Never Assessed Comments Unknown Sex and Gender Information Value Date Recorded Sex Assigned at Not on file Legal Sex Female 9:01 PM CDT Gender Identity Not on file Sexual Orientation Not on file Plan of Treatment Not on file
--- OUTSIDE RECORDS SUMMARY | 2025-01-01 14:19 | XMS_ITS | Encounter Summary ---
Author Organization [facility] Address [address] [place] [address] Care Team Providers Care It Project Coordinator Name Role Phone Anusha ALEMAN MD, Carlos Unavailable [phone] Encounter Details Date Type Department Care Team (Late st Contact Info) Description 07/24/2021 [facility] Outpatient Visit [facility] Orthopedics - Radiology [address] [place] [address] [place] [address] [address] [place] [id number] Social History Tobacco Use Types Packs/Day Years Used Date Smoking Tobacco: Never Assessed Sex and Gender Information Value Date Recorded Sex Assigned at Not on file Gender Identity Not on file Sexual Orientation Not on file COVID-19 Exposure Response Date Recorded In the last month, have you been in contact with someone who was confirmed or suspected to have Coronavirus / COVID-19? Yes 07/06/2021 3:06 PM CDT documented as of this encounter Plan of Treatment Not on file documented as of this encounter Visit Diagnoses Not on filedocumented in this encounter Care Teams It Project Coordinator Relationship Specialty Start [place] [id number] [address] [place] [id number] Orthopedic Surgery 07/24/21 documented as of this encounter
--- OUTSIDE RECORDS SUMMARY | 2025-01-01 14:19 | XMS_ITS | Clinical Summary ---
Author Organization [facility] Address [address] [place] [phone] Phone Care Team Providers Care [place] Name Role Phone Unavailable Primary Care Provider Unavailabl e Encounters Date Type Department Care Team Description 12/29/2024 External Device Data ST[facility] ABSTRACTION Provider, Abstract 12/23/2024 External Device Data [facility] ABSTRACTION Provider, Abstract 12/23/2024 External Device Data [facility] ABSTRACTION Provider, Abstract from Last 3 Months Social History Tobacco Use Types Packs/Day Years Used Date Smoking Tobacco: Never Assessed Comments Unknown Sex and Gender Information Value Date Recorded Sex Assigned at Female 04/22/2024 4:18 PM CDT Legal Sex Female 12:40 PM MANAGER RESPIRATORY CARE Gender Identity Female 04/22/2024 4:18 PM CDT Sexual Orientation Straight 04/22/2024 4: 18 PM CDT Plan of Treatment Health Maintenance Due Date Last Done Comments DTAP/TDAP/TD VACCINES (1 - Tdap) 1973 BREAST CANCER SCREENING 1994 COLORECTAL SCREENING 1999 Colorectal Cancer Screening 1999 FIT-DNA Q 3 years 1999 FIT/FOBT Q 1 year 1999 Flex Sig/CT Colonography Q 5 years 1999 ZOSTER VACCINE (1 of 2) 2004 OSTEOPOROSIS SCREENING 2019 INFLUENZA VACCINE (#1) 2024 COVID-19 Vaccine ( season) 2024 12/05/2022, 01/06/2021, 12/17/2020 RSV VACCINE (60+ or ) (1 - 1-dose 75+ series) 2029 PNEUMOCOCCAL VACCINE 65+ YEARS Completed 12/05/2022 Insurance MEDICARE PART A AND B [facility]
--- OUTSIDE RECORDS SUMMARY | 2025-01-01 14:19 | XMS_ITS | Clinical Summary ---
Author Organization [facility] Phys[facility] Building [address] Address [address] [place] [address] Care Team Providers Care Nib Finisher Name Role Phone No, Physician Primary Care Provider [phone] Allergies Active Allergy Reactions Criticality Noted Date [...] ankles. Assessment & Plan (02/07/2021 8:55 AM METALS SALES REPRESENTATIVE): She is having similar symptoms as before. [...] did recommend that she follow-up with a manager net of her choice. A skin snip might [...] even remedies for lice and scabies. A manager net in [place] gave her a one month course of [...] has had a biopsy of the right christian area, but those results are not available. 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 CARPAL TUNNEL RELEASE Details lacking. NASAL SEPTUM SURGERY Septoplasty DILATION AND CURETTAGE OF UTERUS Details lacking. Medical History Medical History Date Comments Hypertension Hypertension Arthritis Bladder infection Depression Hyperlipidemia Kidney stone Osteopenia STI (sexually transmitted infection) Chicken pox Measles Family History Medical History Relation Name Comments Cancer Father Hyperlipidemia Father Stroke Father Heart attack Mother Hyperlipidemia Mother Hypertension Mother Osteoporosis Mother Stroke Mother Skin cancer Other 1 Family history of cancer, skin; Coronary artery disease Other 2 Fami ly history of Coronary artery disease; Stroke Other 3 Family history of Stroke; Relation Name Status Comments Father Mother Other 1 Other 2 Other 3 Social History Tobacco Use Types Packs/Day Years [...] on file Legal Sex Female 9:39 PM METALS SALES REPRESENTATIVE Gender Identity Not on file Sexual Orientation Not on file Occupation Industry Job Start Date Job End Date [employer] Not on file Not on file Not o n file Obstetrics History Last Filed Vital Signs Vital Sign Reading Time Taken Comments Blood Pressure 90/52 02/01/2021 2:04 PM METALS SALES REPRESENTATIVE Pulse 83 02/01/2021 2:04 PM METALS SALES REPRESENTATIVE Temperature 36.2 ??C (97.1 ??F) 02/01/2021 2:04 PM CS T Respiratory Rate 12 02/01/2021 2:04 PM METALS SALES REPRESENTATIVE Oxygen Saturation 97% 02/01/2021 2:04 PM METALS SALES REPRESENTATIVE Inhaled Oxygen Concentration - - Weight 58.1 kg (128 lb) 02/01/2021 2:04 PM METALS SALES REPRESENTATIVE Height 160 cm (5' 3 ) 06/21/2020 12:04 PM CDT Body Mass Index 22.67 06/21/2020 12:04 PM CDT Plan of Treatment Health Maintenance Due Date Last Done Comments Fall Risk Assessment 1954 Hepatitis C Screening 1954 DTaP/Tdap/Td Vaccine (1 - Tdap) 1965 Hepatitis B Screening 1972 Zoster Vaccine (1 of 2) 2004 Osteoporosis Screening-Bone Density Scan 12/02/2011 12/02/2009 Breast Cancer Screening-Mammogram 12/02/2017 017 Pneumococcal vaccine 65+ (1 of 1 - PCV) 2019 Well Visit 65+ 2019 Depression Screening 06/21/2021 06/21/2020, 06/21/20 20 Covid-19 Vaccine (5 - 2023-2 5 season) 2024 01/06/2021, 01/06/2021, 12/17/2020, Additional history exists Influenza Vaccine (#1) 2024 Colon Cancer Screening-Colonoscopy 12/02/2026 12/02/2016 Colon Cancer Screening-CT Colonography Discontinued 12/02/2016 Colon Cancer Screening-DNA Stool Discontinued 12/02/19 17 Colon Cancer Screening-FIT Discontinued 12/02/2016 Colon Cancer Screening-Sigmoidoscopy Discontinued 12/02/2016 Procedures Procedure Name Priority Date/Time Associated Diagnosis Comments MAMMOGRAPHY Routine 12/02/2016 COLONOSCOPY Routine 12/02/2016 DEXA SCAN Routine 12/02/2009 from Last 3 Months or Most Recently Relevant to Health Maintenance Results * COLONOSCOPY (12/02/2016) Colonoscopy Abnormal Comment:Polyps Historical Provider HEALTH MAINTENANCE Final Result * MAMMOGRAPHY (12/02/2016) Mammogram Normal [facility] Provider HEALTH MAINTENANCE Final Result * DEXA SCAN (12/02/2009) DEXA Scan Abnormal Comment:Osteopenia Historical Provider HEALTH MAINTENANCE Final Result from Last 3 Months or Most Recently Relevant to Health Maintenance Insurance COMMERCIAL GENERIC MEDICARE MEDICARE AMA INSURNACE Care Teams Nib Finisher Relationship Specialty Start Date End Date No, Physician PCP - General 08/18/19
--- OUTSIDE RECORDS SUMMARY | 2025-01-01 14:19 | XMS_ITS | Referral Summary ---
Author Organization [facility] Address [address] [place] [address] Care Team Providers Care Felt Washing Machine Tender Name Role Phone Anusha ALEMAN MD, Carlos Unavailable [phone] Source Comments [facility],non-owned Affiliates and Associated Physician Practices is amultiple site organization consisting of ambulatory clinics and hospital sitesin [place], [place], [place] and [place]. This disclosure is being madepursuant to the Care Everywhere program and may not contain all information available regarding this patient. Last updated 18.[facility] Allergies Active Allergy Reactions Criticality Noted Date Comments Vitamin A Rash Medium 03/27/2017 Medications * Be aware that medications may not be up to date on this document. Alwaysverify current medications with the patient. Medication Sig Dispensed Refills Start Date End Date Status Emollient (DHEA) 1 % by Apply externally route. 03/27/2017 Active olmesartan-hydroCHLO ROthiazide (BENICAR HCT) 40-25 MG tablet Take 1 tablet by mouth DAILY. 03/27/2017 Active Loratadine 10 MG Take by mouth. 03/27/2017 Acti ve spironolactone (ALDACTONE) 100 MG tablet Take 100 mg by mouth DAILY. 03/27/2017 Active Social History Tobacco Use Types Packs/Day Years Used Date Smoking Tobacco: Never Alcohol Use Standard Drinks/Week Comments Yes 0 (1 standard drink = 0.6 oz pur e alcohol) Sex and Gender Information Value Date Recorded Sex Assigned at Not on file Gender Identity Not on file Sexual Orientation Not on file Plan of Treatment Not on file Care Teams Felt Washing Machine Tender Relationship Specialty [place] [address] [address] [address] Orthopedic Surgery 07/24/21
--- OUTSIDE RECORDS SUMMARY | 2025-01-01 14:19 | XMS_ITS | Clinical Summary ---
Author Organization [facility] [employer] Address [address] [place] [address] Care Team Providers Care Rural Mail Carrier Name Role Phone Anusha ALEMAN MD, Carlos Unavailable [phone] Source Comments [facility] [employer],non-owned Affiliates and Associated Physician Practices is amultiple site organization consisting of ambulatory clinics and hospital sitesin [place], [place], [place] and [place]. This disclosure is being madepursuant to the Care Everywhere program and may not contain all information available regarding this patient. Last updated 18.[facility] [employer] Allergies Active Allergy Reactions Criticality Noted Date [...] 100 mg by mouth DAILY. 03/27/2017 Active Family History Medical History Relation Name Comments Cancer - Skin, Non Melanoma Brother Cancer - Skin, Non Melanoma Father Cancer - Skin, Melanoma Neg Hx Psoriasis Neg Hx Relation Name Status Comments Brother Father Social History Tobacco Use Types Packs/Day Years Used Date Smoking Tobacco: Never Alcohol Use Standard Drinks/Week Comments Yes 0 (1 standard drink = 0.6 oz pur e alcohol) Sex and Gender Information Value Date Recorded Sex Assigned at Not on file Gender Identity Not on file Sexual Orientation Not on file Plan of Treatment Health Maintenance Due Date Last Done Comments BONE DENSITY TESTING 1955 COLOGUARD (AGES 45-75) - COL ON CA SCREENING 1954 COLON MONITORING 1954 COLONOSCOPY - COLON CA SCREENING 1954 CT COLONOGRAPHY - COLON CA SCREENING 1954 Colorectal Cancer Screening 1954 FIT - COLON CA SCREENING 1954 FLEX SIG - COLON CA SCREENING 1954 LIPID TESTING 1954 MAMMOGRAM 1954 MEDICARE AWV ? 12 MONTHS 1954 HEPATITIS C SCREENING 01/12/1972 DTAP/TDAP/TD VACCINES (1 - Tdap) 1973 PNEUMOCOCCAL VACCINE 50+ (1 of 1 - PCV) 2004 ZOSTER VACCINE (1 of 2) 2004 COVID-19 VACCINE (3 - 2023-2 5 season) 2024 01/06/2021, 12/17/2020 INFLUENZA VACCINE (#1) 2024 DEPRESSION SCREENING 12/02/2024 Respiratory Syncytial Virus (RSV) Vaccine Pt: or over 60 yrs (1 - 1-dose 75+ series) 2029 HEPATITIS B VACCINE Aged Out No longe r eligible based on patient's age to complete this topic HIB VACCINE Aged Out No longer eligi ble based on patient's age to complete this topic HPV VACCINE Aged Out No longer eligi ble based on patient's age to complete this topic MENINGOCOCCAL (Group B) VACCINE Aged Out No longer eligible b ased on patient's age to complete this topic MENINGOCOCCAL VACCINE Aged Out No sean em eligible based on patient's age to complete this topic Care Teams Rural Mail Carrier Relationship Specialty [place] [address] [address] [facility] [address] [place] [address] Orthopedic Surgery 07/24/21
== END 2025-01-01 14:14 | disposition home or self-care (01) ==
LOC: ANHIMG 14:16
PROVIDERS: PCP Physician Assistant; Visit Provider Nurse Practitioner Family
DX: Z12.31 Encounter for screening mammogram for malignant neoplasm of breast (principal)
CPT/HCPCS: 77063; 77067